=== PATIENT | female | born 1990 | race Caucasian/White ===

== ENCOUNTER 2020-09-03 18:02 | Emergency (ER) | payer OTHER ==
[~2020-09-03] VITALS: Ht 170.2 cm; Wt 61.4 kg
[2020-09-03 19:23] VITALS: BP 114/64; PULSE 74; TEMP 98
== END 2020-09-03 19:24 | disposition home or self-care (01) ==
LOC: COL.ER 18:02
DX: S00.33XA Contusion of nose, initial encounter (principal); Z88.1 Allergy status to other antibiotic agents; W54.1XXA Struck by dog, initial encounter

== ENCOUNTER 2023-03-11 06:50 | Inpatient (IN) | payer OTHER ==
[2023-03-11] VITALS (15 sets, daily range): BP systolic 104–129; BP diastolic 62–113; PULSE 63–96; TEMP 97.9–98.6
[~2023-03-11] VITALS: Ht 172.7 cm; Wt 83.6 kg
--- NOTE | 2023-03-11 07:30 | NUR ---
PT AMBULATES ONTO THE UNIT FOR PRIMARY CESEREAN SECTION WITH SPOUSE.PT DENIES LOF/VB AND REPORTS POSITIVE MOVEMENT.PT ACCLIAMTED TO ROOM 210.POC REVIEWED WITH PT AND ADVISED TO CHANGE INTO GOWN.
[2023-03-11 08:23] LABS: HEMATOCRIT 43.9 % (37.0-47.0); HEMOGLOBIN 14.1 g/dl (12.5-16.0); MEAN CELL VOLUME 89 fl (80.0-100.0); MEAN CORPUSCULAR HEMOGLOBIN 29 pg (27-31); MEAN CORPUSCULAR HGB CONC 32 g/dl (33.0-37.0); MEAN PLATELET VOLUME 10.9 fl (7.4-10.4); PLATELET COUNT 173 K/mm3 (130-400); RED BLOOD COUNT 4.95 M/mm3 (4.10-5.30); REDCELL DISTRIBUTION WIDTH-CV 13.3 % (11.5-14.5)
[2023-03-11 08:53] LABS: BAND 3 % (0-10); BASOPHIL 1 % (0-2); EOSINOPHIL 1 % (0-4); LYMPHOCYTE 9 % (20.0-51.0); NEUTROPHILS 81 % (42.0-75.2)
[2023-03-11 08:54] LABS: HYPOCHROMIA 1+; PLATELET ESTIMATE NORMAL (NORMAL)
--- NOTE | 2023-03-11 09:46 | NUR ---
Initial visit; Patient and her thanked Foaming Machine Operator for looking in on them prior to the of their baby and wishing them well.
--- NOTE | 2023-03-11 11:07 | NUR ---
1107 PT WHEELED TO ROOM 210 VIA BED FROM PACU.PT ALERT AND ORIENTED WITH NO SIGNS OF DIZZINESS OR HEADACHES. REVIEWED EDUCATION WITH PT AND SPOUSE.PT VERABLIZES UNDERSTANDING.
--- NOTE | 2023-03-11 12:15 | NUR ---
0940 THIS RN ESCORTED THE PT AND SPOUSE TO THE OR VIA AMBULATION.ALL APPROPRIATE STAFF NOTIFED AND PREPARE FOR A CESEREAN SECTION PER DR LUCAS AND DR ALEGRIA ASSIST. 4697 VACUUM EXTRACTION OF VIABLE FEMALE INFANT PER DR LUCAS.MECONIUYM NOTED UPON DELIVERY.INFANT TO WARMER AND CARE ASSUMED BY MABEL PATINO RN.STRONG CRY NOTED AT DELIVERY.HUBER ADMINISTERED PER DR LUCAS TO CONTROL BLEEDING.TOTAL QBL FOR CASE 940CC.BLEEDING CONTROLLED FOLLOWING PROCEDURE.FUNDUS FIRM AT THE UMBILICUS AND LOCHIA WITHIN NORMAL LIMITS.MATERNAL VITAL SIGNS STABLE. 1037 PT TO PACU IN STABLE CONDITION VIA BED.WILL CONTINUE WITH CARES PER PROTOCOL.
[2023-03-12] VITALS: BP 120/70; PULSE 72; TEMP 98.1
[2023-03-12 05:00] VITALS: BP 119/69; PULSE 74; TEMP 97.8
[2023-03-12 07:49] VITALS: BP 104/71; PULSE 76; TEMP 97.4
[2023-03-12] MEDS ORDERED: PERCOCET 325 MG1 TA2 PO (11:46)
[2023-03-12] MEDS ORDERED: IBU800 M1 PO (11:46)
[2023-03-12 16:50] VITALS: BP 118/65; PULSE 77; TEMP 98
[2023-03-12 20:30] VITALS: BP 119/71; PULSE 87; TEMP 98.3
[2023-03-13 07:34] VITALS: BP 112/69; PULSE 75; TEMP 98
== END 2023-03-13 11:45 | disposition home or self-care (01) | DRG 788 ==
LOC: OB 06:50
PROVIDERS: ADMIT Student in an Organized Health Care Education/Training Program
PROC: 10D00Z1 Extraction of Products of Conception, Low, Open Approach (ICD-10-PCS; principal; 2023-03-11)
DX: O99.344 Other mental disorders complicating childbirth (principal); Z3A.39 39 weeks gestation of pregnancy; Z37.0 Single live birth; F41.9 Anxiety disorder, unspecified; O69.89X0 Labor and delivery complicated by other cord complications, not applicable or unspecified; F32.A Depression, unspecified; Z88.1 Allergy status to other antibiotic agents; Z23 Encounter for immunization
CPT/HCPCS: J0665; J0690; J1100; J1885; J2371; J2405; J2590; J2765; J7120